=== PATIENT | male | born 1995 | race Caucasian/White ===

== ENCOUNTER 2023-07-12 00:03 | Emergency (ER) | payer OTHER ==
--- NOTE | 2023-07-12 00:22 | ED Physician Documentation ---
History of Present Illness - Stated complaint Stated Complaint: VOMIT,SORE THROAT - Chief complaint Chief Complaint: General - History obtained from History obtained from: Patient - Additonal information Additional information: HPI from patient. Patient c/o nausea, vomiting since earlier this afternoon with sore throat and sensation of posterior oropharyngeal/throat swelling. Also having nonproductive cough, mild dyspnea. Symptoms began gradually earlier today. No exacerbating nor ameliorating factors. Denies fever, abdominal pain. PD PAST MEDICAL HISTORY - Past Medical History Past Medical History: No - Past Surgical History Past Surgical History: No - Present Medications Home Medications: Ambulatory Orders Medication Instructions Recorded Confirmed No Known Home Medications 07/12/23 07/12/23 - Allergies Allergies/Adverse Reactions: Allergies Allergy/AdvReac Type Severity Reaction Status Date / Time No Known Drug Allergies Allergy Verified 07/12/23 00:15 - Social History Does the pt smoke?: No Smoking Status: Never smoker Does the pt drink ETOH?: No Does the pt have substance abuse?: No - Immunizations Immunizations are current?: Yes PD ED PE NORMAL - Vitals Vital signs reviewed: Yes - General General: Alert and oriented X 3, No acute distress, Well developed/nourished - HEENT HEENT: Moist mucous membranes, Other (mild posterior o/p erythema and swelling. airway widely patent, no exudate) - Cardiac Cardiac: RRR, No murmur - Respiratory Respiratory: No respiratory distress, Clear bilaterally - Abdomen Abdomen: Soft, Non tender Results - Vitals Vitals: Oxygen O2 Source Room air - Labs Labs: Microbiology 07/12/23 00:20 Group A Strep Throat Culture - Preliminary Throat CULTURE IN PROGRESS. RESULTS TO FOLLOW. Laboratory Tests 07/12/23 07/12/23 00:20 00:20 Nasal Adenovirus (PCR) NOT DETECTED Nasal B. parapertussis DNA (PCR) NOT DETECTED Nasal Coronavir 229E PCR NOT DETECTED Nasal Coronavir HKU1 PCR NOT DETECTED Nasal Coronavir NL63 PCR NOT DETECTED Nasal Coronavir OC43 PCR NOT DETECTED Nasal Enterovir/Rhinovir PCR NOT DETECTED Nasal Influenza B PCR NOT DETECTED Nasal Influenza A PCR NOT DETECTED Nasal Parainfluen 1 PCR NOT DETECTED Nasal Parainfluen 2 PCR NOT DETECTED Nasal Parainfluen 3 PCR NOT DETECTED Nasal Parainfluen 4 PCR NOT DETECTED Nasal RSV (PCR) NOT DETECTED Nasal B.pertussis DNA PCR NOT DETECTED Nasal C.pneumoniae (PCR) NOT DETECTED Ablwinder Human Metapneumo PCR NOT DETECTED Nasal M.pneumoniae (PCR) NOT DETECTED Nasal SARS-CoV-2 (PCR) NOT DETECTED Group A Strep Rapid Negative PD Medical Decision Making - ED course Complexity details: considered differential, d/w patient ED course: Respiratory PCR panel negative, rapid strep negative. H+P are s/o viral URI. Given 10mg PO decadron for component of pharyngitis, 4mg TL zofran for n/v. Results d/w patient, return precautions reviewed. Departure - Departure Disposition: 01 Home, Self Care Clinical Impression: Vomiting, Pharyngitis Condition: Good Instructions: ED Pharyngitis Viral Report Pending, ED Nausea Vomiting Comments: You tested negative for strep throat tonight. The lab will next perform a culture which is more accurate than the rapid test; if the result is positive for strep (usually takes 24 hours to result), you will be contacted by this ER and a prescription for an antibiotic can then be provided. You will not receive a call if the result is negative. The nasal swab tested negative for a number of different viruses tested on this panel (including COVID, influenza). The exact cause of your symptoms is not apparent at this time, but I strongly suspect a viral infection. As such, your symptoms should resolve within the next 3 to 4 days. You were given a one-time dose of steroid (Decadron) in the emergency department which can help with the pain and swelling associated with p haryngitis. Discharge Date/Time: 07/12/23 02:13
[2023-07-12 00:58] LABS: RAPID STREP SCREEN Negative (Negative)
[2023-07-12 01:56] LABS: CORONAVIRUS 229E-RESP PCR NOT DETECTED; CORONAVIRUS HKU1-RESP PCR NOT DETECTED; CORONAVIRUS NL63-RESP PCR NOT DETECTED; CORONAVIRUS OC43-RESP PCR NOT DETECTED; HUMAN METAPNEUMOVIRUS NOT DETECTED; RHINOVIRUS/ENTEROVIRUS NOT DETECTED; SARS-CoV-2 -RESP PCR PANEL NOT DETECTED
[2023-07-12 01:57] LABS: B. PARAPERTUSSIS- RESP PCR PAN NOT DETECTED; B. PERTUSSIS- RESP PCR PANEL NOT DETECTED; C. PNEUMONIAE- RESP PCR PANEL NOT DETECTED; INFLUENZA A- RESP PCR PANEL NOT DETECTED; INFLUENZA B - RESP PCR PANEL NOT DETECTED; M. PNEUMONIAE- RESP PCR PANEL NOT DETECTED; PARAINFLUENZA VIRUS 1 NOT DETECTED; PARAINFLUENZA VIRUS 2 NOT DETECTED; PARAINFLUENZA VIRUS 3 NOT DETECTED; PARAINFLUENZA VIRUS 4 NOT DETECTED; RSV- RESP PCR PANEL NOT DETECTED
[2023-07-12] MEDS: DEXAMETHASONE 10 MG/ML VIAL PO STA (02:04)
[2023-07-12] MEDS: ONDANSETRON ODT 4 MG Prepack 2 TL PRN (02:04)
[2023-07-12] MEDS: CHERRY SYRUP 10 ML UDC PO ONE (02:04)
[2023-07-12 02:15] VITALS: BP 142/91; O2SAT 95
== END 2023-07-12 02:13 | disposition home or self-care (01) ==
LOC: ED 00:03
DX: R11.10 Vomiting, unspecified (principal); J02.9 Acute pharyngitis, unspecified; Z11.52 Encounter for screening for COVID-19
CPT/HCPCS: 87070; 87430; 87633; 99283; A9270